=== PATIENT | female | born 1995 | race Caucasian/White ===

== ENCOUNTER 2017-11-05 19:41 | Emergency (ER) | payer MEDICAID, SELFPAY ==
[2017-11-05 19:42] VITALS: BP 129/78; PULSE 128; RESP 18; TEMP 38.1; O2SAT 96; BMI 26.6
--- NOTE | 2017-11-05 20:45 | RAD_ITS ---
STUDY: X-RAY CHEST REASON FOR EXAM: Female, 22 years old. Weakness, malaise TECHNIQUE: A single frontal view of the chest was obtained. COMPARISON: None. FINDINGS: The lungs are underaerated. Incidentally noted is an azygos fissure in the right apex. There are no focal airspace opacities. There is no demonstrated pleural abnormality. The cardiac silhouette is normal in size. The mediastinum and hilar regions are unremarkable. Normal visualized pulmonary arteries. Normal visualized aortic arch and descending thoracic aorta. The thoracic spine is unremarkable. The visualized ribs, clavicles, and shoulders are unremarkable. There is no demonstrated abnormality of the visualized upper abdomen. RAD/Chest 1 View (Portable) IMPRESSION: There is no evidence of focal consolidation or pleural effusion. Electronically Signed: Danya Bradford MD at 21:27 EST Tel Direct: [phone], Service support ,
[2017-11-05] MEDS: Ondansetron 4 MG/2 ML Vial IV (21:06)
[2017-11-05] MEDS: Ketorolac 30 MG/ML Syringe IV (21:06)
[2017-11-05] MEDS: 0.9% Normal Saline 1,000 ML 1000 ML IV (21:06)
[2017-11-05 21:24] LABS: Mucous, Urine 0 SEEN /hpf (<or=2+)
[2017-11-05 21:28] LABS: Color, Urine Yellow (Yellow); Glucose, Dipstick Normal (Normal); Ketone-Dipstick Negative (Negative); Leukocyte Esterase-Dipstick 100 /ul (Negative); Nitrite-Dipstick Negative (Negative); Occult Blood-Urine Negative /ul (Negative); Protein-Dipstick Negative (Negative); Urine Bilirubin Dipstick Negative (Negative); Urine Clarity Sl. Cloudy (Clear); Urine Urobilinogen Normal (Normal)
[2017-11-05 21:33] LABS: Squamous Epithelial Cells - UA 0-5 SEEN /hpf (5-10)
[2017-11-05 21:35] LABS: Bacteria 1+ /hpf (None Seen); Red Blood Cells-Urine 0-5 SEEN /hpf (0-5)
[2017-11-05 21:36] LABS: White Blood Cells 5-10 SEEN /hpf (0-5)
--- NOTE | 2017-11-05 22:02 | ED.DCSUM_ITS ---
- ER Visit Summary Date of Service: 11/05/17 Chief Complaint: Sore throat, fever History of Present Illness: The patient is a 22 F presenting with sore throat, fever which started yesterday. She complains of fever, body aches, headache. She has a mild cough. She complains of sore throat and painful swallowing. No difficulty swallowing. She has mild diarrhea. Denies nausea or vomiting. She did not receive a flu shot this year. Physical Examination: Vitals are stable. Temperature 100.6. HR 128. Alert no acute distress. HEENT exam pharyngeal erythema, uvula midline Neck is supple. No meningismus Lungs are clear and equal bilaterally. Heart is regular and tachycardic Abdomen is soft nontender nondistended. Extremities are unremarkable. Skin is warm and dry. No rash No focal neurologic deficit. Remainder of exam is unremarkable. Emergency Department Course and Treatment: Patient was given IV fluids, Zofran, Toradol. She is given Decadron p.o. Influenza was negative. Rapid strep was positive. She is given Bicillin IM. Urinalysis shows 5-10 white cells with leukocytes. She has urinary frequency and dysuria. She is given Bactrim p.o. She is given a prescription for Diflucan and Bactrim. On repeat evaluation she is able to lay flat without difficulty. She is feeling much improved. Her repeat heart rate is 86. She will follow-up with her primary care physician. She is advised return to ED if worsening complaints. Disposition: Discharge home Impression: Strep pharyngitis, UTI This note was generated with [employer] dictation software. It may contain incorrect words, spelling, and punctuation that were not noted in review of the chart prior to signing ED Disposition - Plan for ED Patient: Chief Complaint: General Illness Instructions: ED Pharyngitis Strep Conf Ch Prescriptions: Fluconazole [Diflucan] 150 mg PO X1 #1 tablet Smz/Tmp Ds [Bactrim Ds] 1 tablet PO BID #6 tablet Referrals: Maryam Kerns MD [Primary Care Provider] -
--- NOTE | 2017-11-05 22:12 | ED.DEP ---
ED Disposition - Plan for ED Patient: Chief Complaint: General Illness Instructions: ED Pharyngitis Strep Conf Ch Prescriptions: Fluconazole [Diflucan] 150 mg PO X1 #1 tablet Smz/Tmp Ds [Bactrim Ds] 1 tablet PO BID #6 tablet Referrals: Maryam Kerns MD [Primary Care Provider] -
[2017-11-05] MEDS: Penicillin G Benzathine 1.2 MU/2 ML Syringe IM (22:19)
[2017-11-05] MEDS: Smz/Tmp Ds Tablet 1 TABLET PO (22:35)
[2017-11-05 22:37] VITALS: BP 104/77; PULSE 101; RESP 20
== END 2017-11-05 22:38 | disposition home or self-care (01) ==
LOC: ED 20:49
PROVIDERS: Emergency Provider Emergency Medicine; Family Provider Internal Medicine; PCP Internal Medicine
DX: J02.0 Streptococcal pharyngitis (principal); N39.0 Urinary tract infection, site not specified
CPT/HCPCS: 71045; 81001; 87804; 87880; 96361; 96372; 96374; 96375; 99284; J7030; A4216; J2405

== ENCOUNTER 2018-05-08 10:39 | Emergency (ER) | payer MEDICAID, SELFPAY ==
[2018-05-08 10:40] VITALS: BP 96/70; PULSE 105; RESP 18; TEMP 36.6; O2SAT 100; BMI 29.4
--- NOTE | 2018-05-08 11:24 | ED.DCSUM_ITS ---
- ER Visit Summary Date of Service: 05/08/18 Chief Complaint: Abdominal pain History of Present Illness: The patient is a 23 F who presents with abdominal pain that has been getting worse over the past 5 days. Patient was seen in [facility] 2 days ago for the same thing. Patient was diagnosed with a urinary tract infection. Patient also had some mildly elevated liver enzymes at that time. Patient was given prescriptions for Bactrim and Zofran. Patient states she is still having some nausea and vomiting. Patient states she had one episode of vomiting today. Patient admits to watery diarrhea. Patient denies any melena or hematochezia. Patient denies any urinary complaints. Patient states her last menstrual period started yesterday. Physical Examination: Vital signs are stable. Patient is afebrile. Patient is in no acute distress. Oral mucosa is pink and moist. Neck is supple. Trachea is midline. There is no JVD or lymphadenopathy noted. Heart was regular rate and rhythm. Lungs are clear and equal bilateral. Abdomen is soft. Bowel sounds are normal. There is slight lower abdominal tenderness. There is no rebound or guarding noted. Cranial nerves II through XII are intact. There are no focal motor or sensory deficits noted. The remaining physical exam is within normal limits. Test Results: CBC was normal. Comprehensive metabolic profile showed a mildly elevated alk phos of 241, ALT of 161, and AST of 90. Lipase was normal at 117. Urinalysis does not show any evidence of urinary tract infection. Emergency Department Course and Treatment: Patient was instructed to continue her Bactrim until gone. A hepatitis profile was obtained and is pending. Patient was instructed to follow-up with her primary care physician in 4 days as scheduled. Patient and family understood and were agreeable with the plan. All questions were answered. Disposition: Discharged home Impression: Abdominal pain This note was generated with [employer] dictation software. It may contain incorrect words, spelling, and punctuation that were not noted in review of the chart prior to signing ED Disposition - Plan for ED Patient: Disposition: Home or Assisted Living Chief Complaint: Abd Pain Diagnosis: Abdominal pain of unknown cause Instructions: ED Abdominal Pain Unkn Cause Referrals: Maryam Kerns MD [Primary Care Provider] -
[2018-05-08] MEDS: 0.9% Normal Saline 1,000 ML 1000 ML IV (11:36)
[2018-05-08] MEDS: Ondansetron 4 MG/2 ML Vial IV (11:36)
[2018-05-08 11:43] LABS: Red Blood Cells-Urine 0 SEEN /hpf (0-5)
[2018-05-08 11:45] LABS: Color, Urine Yellow (Yellow); Glucose, Dipstick Normal (Normal); Ketone-Dipstick 5 mg/dl (Negative); Leukocyte Esterase-Dipstick 500 /ul (Negative); Nitrite-Dipstick Negative (Negative); Occult Blood-Urine 10 /ul (Negative); Protein-Dipstick 30 mg/dl (Negative); Specific Gravity, Urine 1.015 (1.002-1.030); Urine Clarity Sl. Cloudy (Clear); Urine Urobilinogen 4 mg/dl (Normal)
[2018-05-08 11:49] LABS: Internal QC Validated? YES +Cl - CLEAR BKGD; Pregnancy, Urine Negative Negative
[2018-05-08 11:51] LABS: Absolute Lymphocyte Count 2.78 X10^3/ul (0.83-4.51); Absolute Neutrophil Count 2.6 X10^3/uL (2.0-7.7); Basophil# 0.13 X10^3/uL; Eosinophil# 0.05 X10^3/uL; Eosinophils% 0.8 % (0-5); Hemoglobin 14.8 g/dl (12.0-15.0); Lymphocyte # 2.78 X10^3/ul (4.0); Lymphocyte % 43.1 % (19-41); Mean Corp Hgb Conc 34.4 g/gl (32-36); Mean Corpuscular Hgb 29.5 pg (27.0-32.0); Mean Corpuscular Volume 85.7 fL (81-99); Mean Platelet Vol. 9.7 fl (6.2-12.0); Monocyte# 0.85 X10^3/uL; Monocyte% 13.2 % (0-10); Neutrophil # 2.63 X10^3/uL (2.7-7.7); Neutrophil % 40.7 % (47-70); Platelet Count 239 K/mm3 (150-450); RBC Distribution Width CV 12.7 % (11.6-14.6); Red Blood Count 5.02 M/mm3 (4.2-5.4); White Blood Count 6.5 K/mm3 (4.4-11.0)
[2018-05-08 11:52] LABS: Differential Indicated SCAN CRITERIA MET; POSITIVE COUNT NO; POSITIVE DIFFERENTIAL NO; POSITIVE MORPHOLOGY YES
[2018-05-08 11:55] LABS: Urine Bilirubin Dipstick 1 mg/dL (Negative)
[2018-05-08 11:57] LABS: White Blood Cells 5-10 SEEN /hpf (0-5)
[2018-05-08 11:58] LABS: Bacteria 1+ /hpf (None Seen); Mucous, Urine RARE /hpf (<or=2+); Squamous Epithelial Cells - UA 5-10 SEEN /hpf (5-10)
[2018-05-08 12:05] LABS: ALB/GLOB Ratio 0.8 RATIO (0.9-2.4); AST(SGOT) 90 U/L (15-37); Alanine Aminotransfer ALT/SGPT 161 U/L (13-56); Albumin, Serum 3.8 g/dL (3.2-5.0); Alkaline Phosphatase 241 U/L (45-117); Anion Gap 11 (5-15); BUN 7 mg/dL (7-18); BUN/Creat Ratio 8.4 RATIO (10-20); Calcium,Total 9.3 mg/dL (8.5-10.1); Chloride 103 mmol/L (98-107); Creatinine, Serum 0.83 mg/dL (0.55-1.02); EST Glomerular Filtration Rate 90 mL/min (>60); Est Glom Filt Rate - Afr Amer 109 mL/min (>60); Estimated Creatinine Clearance 109.23 ml/min; Globulin 4.8 g/dL (2.2-4.2); Glucose 102 mg/dL (74-106); Lipase 117 U/L (73-393); Potassium 3.4 mmol/L (3.5-5.1); Protein, Total 8.6 g/dL (6.4-8.2); Sodium Level 136 mmol/L (136-145)
[2018-05-08 12:14] LABS: Differential Comment SCANNED
[2018-05-08 13:56] VITALS: BP 105/72; PULSE 66; RESP 17; O2SAT 98
[2018-05-10 20:07] LABS: HEPATITIS B SURFACE AG Negative (Negative); Hepatitis A AB, Total Negative (Negative); Hepatitis A IgM Antibody Negative (Negative); Hepatitis B Core AB IgM Negative (Negative); Hepatitis B Core Ab Total Negative (Negative); Hepatitis Be Ab Negative (Negative); Hepatitis Be Ag Negative (Negative)
== END 2018-05-08 13:56 | disposition home or self-care (01) ==
PROVIDERS: Emergency Provider Emergency Medicine; Family Provider Internal Medicine; PCP Internal Medicine
DX: R10.30 Lower abdominal pain, unspecified (principal); E66.9 Obesity, unspecified; F41.9 Anxiety disorder, unspecified; G43.909 Migraine, unspecified, not intractable, without status migrainosus; Z79.2 Long term (current) use of antibiotics; Z79.899 Other long term (current) drug therapy
CPT/HCPCS: 80053; 81001; 81025; 83690; 85025; 86704; 86705; 86706; 86707; 86708; 86709; 87340; 87350; 96361; 96374; 99283; J7030; A4216